=== PATIENT | female | born 1990 | race Caucasian/White ===

== ENCOUNTER 2021-12-15 17:01 | Emergency (ER) | payer MEDICAID ==
[~2021-12-15] VITALS: Ht 160 cm; Wt 54.5 kg
[~2021-12-15 17:01] MED LIST: VALA10002 PO
[2021-12-15] MEDS ORDERED: sulfamethoxazole/trimethoprim DS (800/160mg) tablet PO ONE (17:55)
[2021-12-15] MEDS ORDERED: SULF1TAB45 PO (17:57)
[2021-12-15 19:40] VITALS: BP 123/80
== END 2021-12-15 19:41 | disposition home or self-care (01) ==
LOC: ER 17:02
DX: A49.02 Methicillin resistant Staphylococcus aureus infection, unspecified site (principal); G89.29 Other chronic pain; F15.90 Other stimulant use, unspecified, uncomplicated; Z86.14 Personal history of Methicillin resistant Staphylococcus aureus infection; Z79.2 Long term (current) use of antibiotics
CPT/HCPCS: 99283